=== PATIENT | female | born 1980 | race Caucasian/White ===

== ENCOUNTER 2017-07-01 00:15 | Inpatient (IN) | payer SELFPAY ==
[2017-07-01 01:26] LABS: INR-International Normal Ratio 1.1; PTT 32.7 SEC (22.9-36.1); Prothrombin Time 13.9 SEC (12.0-14.7)
[2017-07-01] MEDS ORDERED: Ondansetron HCl/PF 4 MG/2 ML Vial ONE ×2 (01:29→17:09)
[2017-07-01] MEDS ORDERED: Piperacillin/Tazobactam 3.375 GM in Sodium Chloride 0.9% 100 ML IVPB SCH ×2 (01:45→08:00)
[2017-07-01 02:32] LABS: CKMB 1.7 ng/mL (0-6.6); Troponin I Less than 0.010 ng/mL (< 0.028)
[2017-07-01 03:42] VITALS: BMI 25.6
[2017-07-01] MEDS: Sodium Chloride 0.9% 1,000 ML IV SCH ×2 (04:55→11:17)
[2017-07-01] MEDS ORDERED: Acetaminophen 1,000 MG in Premix Bag 1 BAG IVPB PRN (07:05)
[2017-07-01] MEDS ORDERED: Ketorolac Tromethamine 30 MG/ML VIAL IVP PRN (07:05)
[2017-07-01 08:56] LABS: ALT (SGPT) 373 U/L (8-55); AST (SGOT) 522 U/L (5-34); Albumin 4.1 g/dL (3.5-5.0); Alkaline Phosphatase 110 U/L (40-150); Anion Gap 11 mmol/L (10-20); BUN (Urea Nitrogen) 9 mg/dL (7.0-18.7); Bilirubin, Total 1.5 mg/dL (0.2-1.2); Calc. Creatinine Clearance 116 mL/min (70-130); Carbon Dioxide 23 mmol/L (22-29); Chloride 105 mmol/L (98-107); Estimated GFR-MDRD Greater than 90; Globulin 2.8 g/dL (2.4-3.5); Glucose 118 mg/dL (70-105); Lipase 25 U/L (8-78); Protein, Total 6.9 g/dL (6.0-8.3); Sodium 135 mmol/L (136-145)
[2017-07-01] MEDS ORDERED: Fentanyl 100 MCG/2 ML VIAL ONE ×2 (11:00→11:25)
[2017-07-01] MEDS ORDERED: Midazolam HCl 2 mg/2 ml Vial ONE (11:00)
[2017-07-01] MEDS ORDERED: Iothalamate Meglumine 60% 50 ML VIAL FS ONE (11:02)
[2017-07-01] MEDS ORDERED: Bupivacaine 0.25% HCL 30 ML VIAL ONE (11:02)
[2017-07-01] MEDS ORDERED: Lidocaine 2% w/Epinephrine 1:200K 20 ML VIAL ONE (11:02)
[2017-07-01] MEDS ORDERED: Promethazine HCl 25 MG/ML VIAL SLOW IVP PRN (14:26)
[2017-07-01] MEDS ORDERED: Promethazine HCl 25 MG/ML VIAL IM PRN (14:26)
[2017-07-01] MEDS ORDERED: Ondansetron HCl/PF 4 MG/2 ML Vial IVP PRN (14:26)
--- NOTE | 2017-07-01 14:27 | RAD ---
CHOLANGIOGRAM IN SURGERY: HISTORY: Cholecystitis. FINDINGS/IMPRESSION: Three spot fluoroscopic intraoperative images during a cholangiogram demonstrate changes of cholecyst ectomy. There is contrast opacification of the cystic duct remnant, common bile duct, and the second portion of the duodenum. No filling defects are seen. POS: MONSTER
--- NOTE | 2017-07-01 15:43 | RAD ---
PORTABLE CHEST: Date: 07/01/17 PROVIDED CLINICAL HISTORY: Central line placement. FINDINGS: Comparison with 06/30/17. Cardiac and mediastinal silhouette is unchanged in appearance. Interval placement of a right IJ centr al line, tip of which projects over the expected location of the right atrium. The lungs appear clear . There is no pleural fluid or pneumothorax apparent. Pneumoperitoneum is visualized, presumably on t he postoperative basis. IMPRESSION: 1. Status post central line placement without evidence for complication. 2. Pneumoperitoneum, presumably postsurgical in nature. POS: MONSTER
[2017-07-01] MEDS ORDERED: traMADol HCl 50 MG TAB PO PRN ×2 (15:45)
[2017-07-01] MEDS ORDERED: HYDROcodone/Acetaminophen 5/325 mg Tablet PO PRN (15:46)
[2017-07-01] MEDS ORDERED: Lidocaine 1% PF 5 ML VIAL ONE (17:09)
[2017-07-01] MEDS ORDERED: Dexamethasone 20 MG/5 ML VIAL ONE (17:09)
[2017-07-01] MEDS ORDERED: Ketorolac Tromethamine 30 MG/ML VIAL ONE (17:09)
[2017-07-01] MEDS ORDERED: Propofol 200 MG/20 ML VIAL ONE (17:09)
[2017-07-01] MEDS ORDERED: PHENYLEPHRINE-NS 100 MCG/ML 10 ML SYRINGE ONE (17:09)
[2017-07-01] MEDS ORDERED: Glycopyrrolate 0.2 MG/ML 5 ML SYRINGE ONE (17:09)
[2017-07-01] MEDS: HYDROcodone/Acetaminophen 5/325 mg Tablet PO PRN (18:49)
[2017-07-01] MEDS: Piperacillin/Tazobactam 3.375 GM in Sodium Chloride 0.9% 100 ML IVPB SCH (21:27)
--- NOTE | 2017-07-02 | HP ---
REASON FOR ADMISSION/CHIEF COMPLAINT: Abdominal pain. HISTORY OF PRESENT ILLNESS: Ms. Salas is a 36-year-old woman with a 2-year history of intermittent epigastric pain, which has been worse over the past 2 weeks and severe over the past 2 days. She pre sented to the emergency room on the morning of her admission with severe abdominal pain and nausea. She was diagnosed with gastritis and treated symptomatically and improved and was discharged home, bu t her pain recurred very quickly and she came back to the emergency room. At that time, additional w orkup was performed and she was noted to have an inflamed-appearing gallbladder on CT of the abdomen and pelvis. Her LFTs were normal, but her white count was elevated and she was admitted for IV antib iotics and short interval laparoscopic cholecystectomy. PAST MEDICAL HISTORY: None. PAST SURGICAL HISTORY: LEEP. FAMILY HISTORY: Stroke and heart disease. SOCIAL HISTORY: She is currently on probation and has a past history of marijuana and methamphetamin e abuse. She does smoke cigarettes about half pack a day, but does not drink. ALLERGIES: No known drug allergies. OUTPATIENT MEDICATIONS: Prilosec. REVIEW OF SYSTEMS: Ten-system review of systems is negative except per HPI. She has also had some s ubjective feelings of being hot and cold, but no documented high fevers. She has not had any nausea, vomiting, melena, hematemesis, or hematochezia. The pain is in her epigastrium and radiates around the right side to her back. PHYSICAL EXAMINATION: VITAL SIGNS: Temperature in the ER was 99.4. She has been afebrile since her admission, mildly tach ycardic with a mild elevation in her blood pressure, saturating well on room air. GENERAL: Reveals a pleasant woman in obvious distress, curled up on the bed. HEENT: Unremarkable. NECK: Supple without lymphadenopathy or thyroid nodules. SKIN: Normal without jaundice or icterus, rash. No lymphadenopathy or thyroid nodules. HEART: Regular but tachycardic. No murmurs, rubs, or gallops are appreciated. LUNGS: Clear to auscultation bilaterally. Patient does have pain with deep inspiration in the epiga stric and right upper quadrant areas. ABDOMEN: Soft and nondistended. She is very tender to palpation in the right upper quadrant and epi gastrium greater than left upper quadrant and nontender. In the lower abdomen, no palpable masses or hernias. EXTREMITIES: Warm and well perfused without edema. NEUROLOGIC: No focal deficits. PSYCHIATRIC: Alert, oriented, and appropriate. LABORATORY AND X-RAY FINDINGS: White count in the ER was elevated. LFTs normal and lipase normal an d urine negative. CT images are reviewed and I agree with the written report. The gallbla dder is markedly enlarged with pericholecystic fluid and edema in the wall of the gallbladder. She h as some intra and extrahepatic biliary dilatation. No other abnormalities are seen. She does have a n incidental right renal stone, but no hydronephrosis. ASSESSMENT: Acute cholecystitis. PLAN: Laparoscopic cholecystectomy with intraoperative cholangiogram due to dilated bile duct, altho ugh her LFTs were normal. I did reorder some lab work this morning, though still pending at the time of her evaluation. If her LFTs are abnormal, then ERCP may be necessary. The inherent risks of cho lecystectomy were discussed with the patient in detail. These risks include but are not limited to b leeding, infection, risks of anesthesia, damage to nearby structures including bowel, liver, and bile duct, need for open surgery or other procedures and she understands and accepts these risks and wish es to proceed and has been placed on the OR schedule with continued perioperative antibiotics.
[2017-07-02] MEDS: HYDROcodone/Acetaminophen 5/325 mg Tablet PO PRN ×2 (00:30→10:10)
[2017-07-02] MEDS: Piperacillin/Tazobactam 3.375 GM in Sodium Chloride 0.9% 100 ML IVPB SCH ×2 (03:25→08:58)
[2017-07-02 06:07] LABS: #Basophils 0.1 thou/uL (0.0-0.2); #Lymphocytes 1.3 thou/uL (1.20-3.40); #Monocytes 1.6 thou/uL (0.11-0.59); #Neutrophils 15.9 thou/uL (1.40-6.50); %Basophils 0.6 % (0.0-1.0); %Eosinophils 0.1 % (0.0-10.0); %Lymphocytes 6.7 % (21.0-51.0); %Monocytes 8.7 % (0.0-10.0); Hemoglobin 10.7 g/dL (12.0-16.0); Mean Corpuscular HGB CONC 32.5 g/dL (32.0-36.0); Mean Corpuscular Hemoglobin 30.7 pg (27.0-31.0); Mean Corpuscular Volume 94.4 fl (81.0-99.0); Mean Platelet Volume 7.9 fL (7.4-10.4); Platelet Count 198 thou/uL (130-400); RBC Distribution Width 11.9 % (11.5-14.5); Red Blood Cell (RBC) Count 3.48 mill/uL (4.20-5.40); White Blood Cell (WBC) Count 18.9 thou/uL (4.8-10.8)
[2017-07-02 06:27] LABS: ALT (SGPT) 203 U/L (8-55); AST (SGOT) 111 U/L (5-34); Albumin 3.4 g/dL (3.5-5.0); Alkaline Phosphatase 80 U/L (40-150); Anion Gap 9 mmol/L (10-20); BUN (Urea Nitrogen) 15 mg/dL (7.0-18.7); Bilirubin, Total 0.4 mg/dL (0.2-1.2); Calc. Creatinine Clearance 115 mL/min (70-130); Calcium 8.4 mg/dL (7.8-10.44); Carbon Dioxide 25 mmol/L (22-29); Chloride 108 mmol/L (98-107); Estimated GFR-MDRD 90; Globulin 2.4 g/dL (2.4-3.5); Glucose 155 mg/dL (70-105); Lipase 20 U/L (8-78); Potassium 3.9 mmol/L (3.5-5.1); Protein, Total 5.8 g/dL (6.0-8.3); Sodium 138 mmol/L (136-145)
--- NOTE | 2017-07-02 10:00 | PDOC.OP ---
Operative Note - Operative Note Operative Note: PROCEDURE: Laparoscopic cholecystectomy with intraoperative cholangiogram SURGEON: Aminata Winchester M.D. DATE OF PROCEDURE: 07/01/2017 PREOPERATIVE DIAGNOSIS: Cholelithiasis and cholecystitis, possible choledocholithiasis: POSTOPERATIVE DIAGNOSIS: Cholelithiasis and cholecystitis HISTORY: Patient with 2 years of intermittent epigastric pain becoming worse in the past 2 years and constant over the past [address] was consistent with acute cholecystitis and LFTs were mildly elevated so laparoscopic cholecystectomy was recommended with intraoperative cholangiogram to evaluate for possible choledocholithiasis. FINDINGS: Severe acute on chronic cholecystitis with a very enlarged inflamed gallbladder with acute adhesions and edema. No definite filling defect in the common bile duct although it was somewhat enlarged. PROCEDURE IN DETAIL: After informed consent was obtained and appropriate preoperative antibiotics were administered, the patient was taken to the operating room and placed in the supine position and general endotracheal anesthesia was administered. The stomach was decompressed with an OG tube and the abdomen was prepped and draped in standard sterile fashion. Local anesthesia was infused to the skin and subcutaneous tissues at the umbilical level. A transverse skin incision was made. The fascia was elevated and a Veress needle was placed into the abdominal cavity without difficulty. Opening pressure was less than 5 and carbon dioxide gas easily insufflated to an intra- abdominal pressure of 15, which the patient tolerated well. The Veress needle was withdrawn and a Pinhook port advanced under direct vision. The abdominal cavity was carefully examined. There was no evidence of Veress needle or of trocar injury. Local anesthesia was infused to the skin and subcutaneous tissues at the epigastric, right upper quadrant, and right lateral abdominal sites and trocars were placed under direct vision of the laparoscope. The fundus of the gallbladder was too taut to grasp, so it was aspirated, removing 30 ml of blood-tinged, colorless bile. The fundus was then able to be grasped and retracted superiorly. The infundibulum was grasped and retracted laterally. The serosa was stripped inferiorly at the level of the neck of the gallbladder exposing the cystic duct and artery which were traced clearly to their insertion in the gallbladder. These were dissected free circumferentially and the cystic duct was clipped at the level of the neck of the gallbladder. An incision was made in the cystic duct inferior to the clip and the cystic duct was palpated with no stones palpable. Clear bile was seen to flow from the cystic duct incision. A cholangiogram catheter was introduced and placed into the cystic duct and secured with a clip. A cholangiogram was obtained which showed an adequate length of cystic duct. There was normal filling of the common bile duct with free flow of contrast into the duodenum, although the bile duct did appear slightly enlarged. There was normal retrograde flow into the common hepatic duct beyond the level of the bifurcation without filling defects. The cholangiogram catheter was removed and the cystic duct clipped below the incision in the cystic duct. The cystic duct was divided between these clips and the previously placed clip. The cystic artery was never encountered and it was felt that this was likely divided using electrocautery of small branches as the dissection was carried out right on the wall of the gallbladder due to severe edema and fibrosis at the level of the neck of the gallbladder making dissection in this area hazardous. The gallbladder was then dissected free of the gallbladder bed using hook electrocautery. Due to the inflamed nature of the gallbladder, the gallbladder did tear off of the liver bed in a couple places but bleeding from these areas was able to be controlled easily with electrocautery. Prior to complete removal of the gallbladder from the gallbladder bed, the area of the cystic duct stump was examined. The clips were in good position completely across this structure and there was no bleeding and no leakage of bile. The gallbladder was then placed into an EndoCatch bag and drawn out through the epigastric incision, which required significant dilation of the incision due to the thickened and inflamed nature of the gallbladder, as well as removal of several stones within the gallbladder. The epigastric trocar was replaced and the operative site easily irrigated to clear. There was no significant bleeding or spillage of bile. The epigastric trocar was removed and the fascia closed under direct laparoscopic vision with a 0 Vicryl suture on a GraNee needle in a [id number] manner with excellent technical result. The right upper quadrant and right lateral abdominal trocars were removed and hemostasis verified. Carbon dioxide gas was allowed to desufflate through the umbilical trocar which was then removed. The skin incisions were closed with 4-0 subcuticular Monocryl sutures and Dermabond dressings were placed. The patient was extubated and taken to the recovery room in good condition. There were no complications. ESTIMATED BLOOD LOSS: Minimal. SPECIMEN : Gallbladder and contents. Aspirated bile was also sent for Gram stain and culture.
[2017-07-02 11:07] VITALS: BP 118/79; TEMP 98.1
== END 2017-07-02 11:16 | disposition home or self-care (01) | DRG 419 ==
LOC: ERS 00:15 → SURG A 01:00
PROVIDERS: ADMIT Surgery; ATTEND Surgery
PROC: 0FT44ZZ Resection of Gallbladder, Percutaneous Endoscopic Approach (ICD-10-PCS; principal; 2017-07-01)
PROC: BF101ZZ Fluoroscopy of Bile Ducts using Low Osmolar Contrast (ICD-10-PCS; 2017-07-01)
DX: K80.12 Calculus of gallbladder with acute and chronic cholecystitis without obstruction (principal); F17.210 Nicotine dependence, cigarettes, uncomplicated; K82.8 Other specified diseases of gallbladder
CPT/HCPCS: 36415; 47532; 71045; 74330; 80053; 82553; 83690; 84484; 85025; 85610; 85730; 86850; 86900; 86901; 88304; 93005; 96365; 96375; 99406; J1100; J1610; J1885; J2001; J2250; J2270; J2405; J2543; J2704; J3010; J7050; Q9961; S0020

== ENCOUNTER 2018-04-23 02:13 | Emergency (ER) | payer OTHER, SELFPAY ==
[2018-04-23] MEDS ORDERED: Lorazepam 2 MG/ML VIAL ONE (02:31)
[2018-04-23 02:59] LABS: #Basophils 0.1 thou/uL (0.0-0.2); #Eosinphils 0.1 thou/uL (0.0-0.7); #Lymphocytes 2.7 thou/uL (1.20-3.40); #Monocytes 0.5 thou/uL (0.11-0.59); #Neutrophils 6.2 thou/uL (1.40-6.50); %Eosinophils 1.1 % (0.0-10.0); %Monocytes 5.5 % (0.0-10.0); %Neutrophils 64.5 % (42.0-75.0); Hemoglobin 14.4 g/dL (12.0-16.0); Mean Corpuscular HGB CONC 33.8 g/dL (32.0-36.0); Mean Corpuscular Volume 91.9 fL (78.0-98.0); Mean Platelet Volume 8.4 fL (7.4-10.4); Platelet Count 269 thou/uL (130-400); RBC Distribution Width 11.4 % (11.5-14.5); Red Blood Cell (RBC) Count 4.64 mill/uL (4.20-5.40); White Blood Cell (WBC) Count 9.6 thou/uL (4.8-10.8)
[2018-04-23 03:06] LABS: BHCG - Serum Negative (NEGATIVE); Pregs Control Background? CLEAR/WHITE (CLR/WHITE); Pregs Control Bar Appear? YES (CONTROL BAR)
[2018-04-23 03:22] LABS: ALT (SGPT) 14 U/L (8-55); AST (SGOT) 18 U/L (5-34); Albumin 4.4 g/dL (3.5-5.0); Alkaline Phosphatase 61 U/L (40-150); Anion Gap 14 mmol/L (10-20); BUN (Urea Nitrogen) 19 mg/dL (7.0-18.7); Bilirubin, Total 0.3 mg/dL (0.2-1.2); CK (CPK) 79 U/L (29-168); Calc. Creatinine Clearance 0 mL/min (70-130); Calcium 9.7 mg/dL (7.8-10.44); Carbon Dioxide 22 mmol/L (22-29); Chloride 106 mmol/L (98-107); Estimated GFR-MDRD 77; Glucose 91 mg/dL (70-105); Lipase 71 U/L (8-78); Potassium 3.9 mmol/L (3.5-5.1); Protein, Total 7.4 g/dL (6.0-8.3); Sodium 138 mmol/L (136-145)
[2018-04-23 03:23] LABS: CKMB 1.4 ng/mL (0-6.6)
[2018-04-23 04:37] LABS: Troponin I Less than 0.010 ng/mL (< 0.028)
--- NOTE | 2018-04-23 08:07 | RAD ---
RADIOGRAPH CHEST 1 VIEW: HISTORY: 37-year-old female with chest pain and dyspnea. FINDINGS: The visualized lung alfred are clear. The cardiomediastinal silhouette and hilar shadows are normal. The lateral costophrenic angles are sharp. The osseous structures appear normal. There is no pneu mothorax. IMPRESSION: Negative. teresa [] POS: KAREN
--- NOTE | 2018-04-26 14:16 | EKG ---
Test Reason : Blood Pressure : / mmHG Vent. Rate : 116 BPM Atrial Rate : 116 BPM P-R Int : 148 ms QRS Dur : 078 ms QT Int : 328 ms P-R-T Axes : 061 055 089 degrees QTc Int : 455 ms Sinus tachycardia Nonspecific ST and T wave abnormality Abnormal ECG Confirmed by DOMINGUEZ SHEPHERD, BE ([id number]), science editor MADELINE MIRZA ([id number]) on 04/26/2018 2:15:42 PM Referred By: Confirmed By:BE MIX MD
== END 2018-04-23 04:52 | disposition home or self-care (01) ==
LOC: ERS 02:13
DX: F41.0 Panic disorder [episodic paroxysmal anxiety] (principal); F17.210 Nicotine dependence, cigarettes, uncomplicated
CPT/HCPCS: 36415; 71045; 80053; 82550; 82553; 83690; 84703; 85025; 85379; 93005; 96372; J2060